=== PATIENT | male | born 1990 | race Two or more races ===

== ENCOUNTER → 2021-10-31 15:47 | Outpatient (BNVA) | payer OTHER, SELFPAY | PROVIDERS: Visit Provider Physician Assistant | DX: S61.012A Laceration without foreign body of left thumb without damage to nail, initial encounter (principal); W26.0XXA Contact with knife, initial encounter | CPT/HCPCS: 12001; 99203 ==

== ENCOUNTER → 2021-11-04 12:08 | Outpatient (BNVA) | payer OTHER, SELFPAY | PROVIDERS: Visit Provider Internal Medicine | DX: S61.012A Laceration without foreign body of left thumb without damage to nail, initial encounter (principal); W26.9XXA Contact with unspecified sharp object(s), initial encounter | CPT/HCPCS: 99213 ==

== ENCOUNTER → 2021-11-11 13:12 | Outpatient (BNVA) | payer OTHER, SELFPAY | PROVIDERS: Visit Provider Internal Medicine | DX: S61.012A Laceration without foreign body of left thumb without damage to nail, initial encounter (principal); W26.0XXA Contact with knife, initial encounter; R20.0 Anesthesia of skin; L03.012 Cellulitis of left finger | CPT/HCPCS: 99213 ==

== ENCOUNTER → 2021-11-21 13:06 | Outpatient (BNVA) | payer OTHER, SELFPAY | PROVIDERS: Visit Provider Internal Medicine | DX: S61.012A Laceration without foreign body of left thumb without damage to nail, initial encounter (principal); W26.9XXA Contact with unspecified sharp object(s), initial encounter | CPT/HCPCS: 99213 ==

== ENCOUNTER → 2021-11-25 14:00 | Outpatient (BNVA) | payer OTHER, SELFPAY | PROVIDERS: Visit Provider Physician Assistant | DX: S61.012A Laceration without foreign body of left thumb without damage to nail, initial encounter (principal) | CPT/HCPCS: 99202 ==

== ENCOUNTER → 2021-12-03 14:09 | Outpatient (BNVA) | payer OTHER, SELFPAY | PROVIDERS: Visit Provider Internal Medicine | DX: S61.012D Laceration without foreign body of left thumb without damage to nail, subsequent encounter (principal); S64.32 Injury of digital nerve of left thumb; W26.9XXD Contact with unspecified sharp object(s), subsequent encounter | CPT/HCPCS: 99213 ==

== ENCOUNTER → 2022-01-03 12:14 | Outpatient (BNVA) | payer OTHER, SELFPAY | PROVIDERS: Visit Provider Internal Medicine | DX: S64.32 Injury of digital nerve of left thumb (principal); W26.9XXD Contact with unspecified sharp object(s), subsequent encounter | CPT/HCPCS: 99213 ==